=== PATIENT | female | born 1985 | race Caucasian/White ===

== ENCOUNTER 2016-08-27 22:49 | Emergency (ER) | payer OTHER ==
[~2016-08-27] VITALS: Ht 167.6 cm; Wt 104.2 kg
[~2016-08-27 22:49] MED LIST: ACET-1257 PO; LURA1TAB3 PO
[2016-08-27 23:08] VITALS: TEMP 36.6; Ht 167.6 cm; Wt 104.2 kg
--- NOTE | 2016-08-28 00:37 | EMERGENCY ROOM VISIT NOTE ---
History First contact with patient: 23:31 Chief Complaint: OTHER COMPLAINT Stated Complaint: FEVER,NASAL CONGESTION,CHILLS,SHIVERING History of Present Illness The patient is a 31 year old female who presents to the Emergency Room with complaints of a cold and fever. The patient states that she has had cold symptoms for the past one week. She states that she has had nasal congestion, sneezing and intermittent chills. She states that her fever was 100.1F tonight. She took Tylenol which improved this. The patient denies any cough, headache, neck pain, or abdominal pain. The patient also reports that she has been trying to get . She took Clomid one month ago. She states she has had vomiting after taking her medications for the past 3 days, breast pain and back pain and is wondering if she may be . She was seen at [facility] yesterday and had a serum test which she states was pending. The patient denies any vaginal bleeding. Review of Systems A complete 10 point review of systems was reviewed with the patient with pertinent positives and negatives as per history of present illness. All else were negative. Social History Smoking Status: Never Smoker Drug Use: none Marital Status: Housing Status: lives with family Current/Historical Medications Scheduled Acetaminophen (Tylenol Extra Strength), 2 TAB PO HS Lurasidone Hcl (Latuda), 1 TAB PO HS Allergies Coded Allergies: No Known Allergies (Unverified , 05/08/15) Physical Exam Vital Signs Date Time Temp Pulse Resp B/P Pulse Ox O2 Delivery O2 Flow Rate FiO2 08/28/16 00:51 94 18 119/75 98 08/27/16 23:08 36.6 122 19 123/73 98 Room Air Physical Exam VITALS: Vitals are noted on the nurse's note and reviewed by myself. Vital signs stable. GENERAL: This is a 31-year-old female, in no acute distress, nondiaphoretic, well-developed well-nourished. SKIN: The skin was without rashes. EARS: External auditory canals clear, tympanic membranes pearly raymond without erythema or effusion bilaterally. EYES: Pupils equal round and reactive to light and accommodation. Conjunctivae without injection, sclerae without icterus. NOSE: Patent, turbinates without inflammation or discharge. MOUTH: Mucous membranes moist. Tonsils are not enlarged. Pharynx without erythema or exudate. NECK: Supple without nuchal rigidity. No lymphadenopathy. HEART: Regular rate and rhythm without murmurs gallops or rubs. LUNGS: Clear to auscultation bilaterally without wheezes, rales or rhonchi. ABDOMEN: Soft, nontender to palpation. NEURO: Patient was alert and oriented to person place and time. Medical Decision & Procedures Laboratory Results Test 08/28/16 00:02 Urine Test NEG (NEG) Medical Decision Differential diagnosis includes viral illness, influenza, among others. The patient was evaluated as above. She complains of a cold as well as fevers. The patient is afebrile today. Her physical exam is unremarkable. She likely has a viral illness and was instructed to take Tylenol for pain and follow-up with her primary care provider as needed. A urine test was performed here and was negative. She states that a serum test was performed at [facility] and is pending. She was instructed to call them for the results. She verbalized her understanding of my assessment and treatment plan and was discharged home in good condition. Impression Primary Impression: Viral illness Departure Information Dispostion Home / Self-Care Condition GOOD Referrals No Doctor, Assigned (PCP) Patient Instructions My [facility] Additional Instructions Tylenol as needed for pain. Follow-up with your [facility].
[2016-08-28 00:51] VITALS: BP 119/75; PULSE 94; O2SAT 98
== END 2016-08-28 00:52 | disposition home or self-care (01) ==
LOC: C.EDB 22:51 → C.EDC 08-28 00:52
DX: B34.9 Viral infection, unspecified (principal)

== ENCOUNTER 2017-06-19 11:29 | Emergency (ER) | payer OTHER ==
[~2017-06-19] VITALS: Ht 167.6 cm; Wt 102.0 kg
[2017-06-19 11:30] VITALS: TEMP 36.9; Ht 167.6 cm; Wt 102.0 kg
[2017-06-19 11:46] VITALS: O2SAT 93
[2017-06-19] MEDS ORDERED: SODIUM CHLORIDE 0.9% 1000ML 1,000 ML IV STA (12:01)
[2017-06-19] MEDS ORDERED: KETOROLAC TROMETHAMINE 30 MG/ML VIAL IV STA (12:01)
[2017-06-19] MEDS ORDERED: ALBUT/IPRATROP 3MG/0.5MG NEB 3 ML VIAL INH STA ×2 (12:01→14:19)
--- NOTE | 2017-06-19 12:09 | EMERGENCY ROOM VISIT NOTE ---
History Report prepared by Viviane: Bhanu Edwards Under the Supervision of: Dr. Mike Frazier D.O. First contact with patient: 11:54 Chief Complaint: SHORTNESS OF BREATH Stated Complaint: SOB, COUGH Nursing Triage Summary: c/o dry cough and SOB getting worse with a fever History of Present Illness The patient is a 32 year old female who presents to the Emergency Room with complaints of shortness of breath that began two days ago. She denies any known chronic medical history. At this time, that patient began to experience some respiratory problems with intermittent dry coughing. She has a past medical history of bronchitis and pneumonia, so she thought that she should be evaluated. She went to a medical clinic who diagnosed her with a chest cold. However, she continued to exhibit symptoms including a fever of 101.3 F, sore throat, fatigue, and chest heaviness. She most recently took Tylenol 6 hours ago. She takes Gabapentin, Metformin, Latuda, and Trazodone daily. She denies any previous surgeries, excluding a related tear. Her last known menstrual period was May 22, 2017. She denies any known medication allergies. She denies any leg swelling. Source of History: patient Onset: two days ago Position: other (Respiratory System) Symptom Intensity: moderate Quality: other (SOB) Timing: constant Associated Symptoms: + fevers, + sorethroat, + cough, + fatigue Note: She is experiencing chest heaviness. She denies any leg swelling. Review of Systems See HPI for pertinent positives & negatives. A total of 10 systems reviewed and were otherwise negative. Past Medical & Surgical No chronic medical history Family History Diabetes mellitus Hypertension Kidney disease Kidney stones Social History Smoking Status: Never Smoker Smokeless Tobacco Use: No Alcohol Use: none Drug Use: none Marital Status: Housing Status: lives with family Current/Historical Medications Scheduled Acetaminophen (Tylenol Extra Strength), 2 TAB PO HS Albuterol Hfa (Ventolin Hfa), 1 PUFF INH Q4 Azithromycin (Zithromax), 250 MG PO DAILY Gabapentin (Neurontin), 2 TAB PO BID Lurasidone Hcl (Latuda), 1 TAB PO HS Metformin Hcl (Glucophage), 500 MG PO BID Multivit/Min/Iron/Fol Ac/Pren ( Vitamin), 1 TAB PO DAILY Prednisone (Prednisone Tab), 40 MG PO DAILY Trazodone Hcl (Trazodone), 25 MG PO DAILY Allergies Coded Allergies: No Known Allergies (Unverified , 06/19/17) Physical Exam Vital Signs Date Time Temp Pulse Resp B/P (MAP) Pulse Ox O2 Delivery O2 Flow Rate FiO2 06/19/17 14:49 88 18 128/77 97 06/19/17 13:32 90 18 122/72 98 Room Air 06/19/17 12:21 89 16 123/87 100 Room Air 06/19/17 11:54 85 06/19/17 11:46 93 Room Air 06/19/17 11:30 36.9 102 18 122/74 98 Physical Exam GENERAL: Patient is awake, alert, and in no acute distress. Patient is resting comfortably and showing no signs of anxiety EYES: The conjunctivae are clear. The pupils are round and reactive. EARS, NOSE, MOUTH AND THROAT: The nose is without any evidence of any deformity. Mucous membranes are dry tongue is midline NECK: The neck is nontender and supple. RESPIRATORY: Lung sounds are diminished throughout with scattered rhonchi. No tachypnea or conversational dyspnea. CARDIOVASCULAR: Regular rate and rhythm noted there no murmurs rubs or gallops normal S1 normal S2 GASTROINTESTINAL: The abdomen is soft. Bowel sounds are present in all quadrants. Abdomen is nontender MUSCULOSKELETAL/EXTREMITIES: There is no evidence of gross deformity full range of motion is noted in the hips and shoulders SKIN: There is no obvious evidence of any rash. There are no petechiae, pallor or cyanosis noted. NEUROLOGIC: Patient is awake alert and oriented x3 strength is symmetric patellar reflexes are 2+ bilaterally Medical Decision & Procedures ER Provider Diagnostic Interpretation: Radiology results as stated below per my review and radiologist interpretation: CHEST ONE VIEW PORTABLE CLINICAL HISTORY: EVALUATE RESPIRATORY DISTRESS.DYSPNEA COMPARISON STUDY: Chest radiograph May 09, 2015. FINDINGS: Lung volumes are normal. There is no pneumothorax or pleural effusion. There is no consolidation. Pulmonary vascularity is normal. Cardiomediastinal silhouette is normal. IMPRESSION: No acute cardiopulmonary findings. Electronically signed by: Polo Jackson M.D. 06/19/2017 1:56 PM Dictated Date/Time: 06/19/2017 1:56 PM Laboratory Results 06/19/17 12:10 Red Blood Count 4.27, Mean Corpuscular Volume 84.8, Mean Corpuscular Hemoglobin 29.0, Mean Corpuscular Hemoglobin Concent 34.3, Mean Platelet Volume 8.8, Neutrophils (%) (Auto) 57.3, Lymphocytes (%) (Auto) 29.7, Monocytes (%) (Auto) 8.6, Eosinophils (%) (Auto) 3.8, Basophils (%) (Auto) 0.3, Neutrophils # (Auto) 4.25, Lymphocytes # (Auto) 2.20, Monocytes # (Auto) 0.64, Eosinophils # (Auto) 0.28, Basophils # (Auto) 0.02 06/19/17 12:10 Test 06/19/17 12:01 06/19/17 12:10 Influenza Type A Antigen Neg for Influ A (NEG) Influenza Type B Antigen Neg for Influ B (NEG) White Blood Count 7.41 K/uL (4.8-10.8) Red Blood Count 4.27 M/uL (4.2-5.4) Hemoglobin 12.4 g/dL (12.0-16.0) Hematocrit 36.2 % (37-47) Mean Corpuscular Volume 84.8 fL (80-100) Mean Corpuscular Hemoglobin 29.0 pg (25-34) Mean Corpuscular Hemoglobin Concent 34.3 g/dl (32-36) Platelet Count 237 K/uL (130-400) Mean Platelet Volume 8.8 fL (7.4-10.4) Neutrophils (%) (Auto) 57.3 % Lymphocytes (%) (Auto) 29.7 % Monocytes (%) (Auto) 8.6 % Eosinophils (%) (Auto) 3.8 % Basophils (%) (Auto) 0.3 % Neutrophils # (Auto) 4.25 K/uL (1.4-6.5) Lymphocytes # (Auto) 2.20 K/uL (1.2-3.4) Monocytes # (Auto) 0.64 K/uL (0.11-0.59) Eosinophils # (Auto) 0.28 K/uL (0-0.5) Basophils # (Auto) 0.02 K/uL (0-0.2) RDW Standard Deviation 41.0 fL (36.4-46.3) RDW Coefficient of Variation 13.4 % (11.5-14.5) Immature Granulocyte % (Auto) 0.3 % Immature Granulocyte # (Auto) 0.02 K/uL (0.00-0.02) Anion Gap 9.0 mmol/L (3-11) Est Creatinine Clear Calc Drug Dose 130.5 ml/min Estimated GFR () 122.0 Estimated GFR (Non- 105.3 BUN/Creatinine Ratio 17.9 (10-20) Calcium Level 9.2 mg/dl (8.5-10.1) Total Bilirubin 0.2 mg/dl (0.2-1) Aspartate Amino Transf (AST/SGOT) 16 U/L (15-37) Alanine Aminotransferase (ALT/SGPT) 32 U/L (12-78) Alkaline Phosphatase 66 U/L (45-117) Troponin I < 0.015 ng/ml (0-0.045) Total Protein 7.7 gm/dl (6.4-8.2) Albumin 3.7 gm/dl (3.4-5.0) Globulin 4.0 gm/dl (2.5-4.0) Albumin/Globulin Ratio 0.9 (0.9-2) Human Chorionic Gonadotropin, Qual NEG (NEG) Laboratory results per my review. Medications Administered Medications (Trade) Dose Ordered Sig/Ramona Route Start Time Stop Time Status Last Admin Dose Admin Sodium Chloride 1,000 ml @ 999 mls/hr Q1H1M STAT IV 06/19/17 12:01 06/19/17 13:01 DC 06/19/17 12:17 999 MLS/HR Ketorolac Tromethamine (Toradol Inj) 30 mg NOW STAT IV 06/19/17 12:01 06/19/17 12:03 DC 06/19/17 12:16 30 MG Albuterol/ Ipratropium (Duoneb) 3 ml NOW STAT INH 06/19/17 12:01 06/19/17 12:03 DC 06/19/17 12:16 3 ML Prednisone (PredniSONE TAB) 60 mg NOW STAT PO 06/19/17 14:17 06/19/17 14:18 DC 06/19/17 14:23 60 MG Azithromycin (Zithromax Tab) 500 mg NOW STAT PO 06/19/17 14:17 06/19/17 14:18 DC 06/19/17 14:23 500 MG Albuterol/ Ipratropium (Duoneb) 3 ml NOW STAT INH 06/19/17 14:19 06/19/17 14:20 DC 06/19/17 14:23 3 ML ECG Per My Interpretation Indication: SOB/dyspnea Rate (beats per minute): 85 Rhythm: normal sinus Findings: other (No PVC, no acute ST segments) Comparison ECG Date: 05/08/15 Change: no significant change ED Course 1154: The patient was evaluated in room B2. A complete history and physical examination were performed. 1201: Ordered DuoNeb 3 ml INH, Toradol Inj 30 mg IV, NSS 1,000 ml @ 999 mls/hr IV 1417: Ordered Zithromax Tab 500 mg PO, Prednisone 60 mg PO 1419: Ordered DuoNeb 3 ml INH 1445: Upon reevaluation, the patient is resting. I discussed the results and treatment plan with her. She verbalized agreement of the treatment plan. She was discharged home. Medical Decision Differential diagnosis: Etiologies such as infections, reactive airway disease, pneumonia, pneumothorax , COPD, CHF, cardiac ischemia, pulmonary embolism, musculoskeletal, gastrointestinal, as well as others were entertained. Nursing notes reviewed. The patient is a 32-year-old female who presented to the emergency department for an evaluation of cough. The patient is a history of bronchitis in the past. She was concerned she may have pneumonia. The patient was treated with IV fluids as well as bronchodilator therapy. She was also started on steroids as well as antibiotics. I discussed the patient's laboratory and radiographic studies with her. She was encouraged to rest and avoid any strenuous activity. She was also encouraged to continue all medications as prescribed and follow- up with her family doctor since possible. Otherwise I recommended that she return to the emergency department immediately if symptoms change worsening of the need arises. Medication Reconcilliation Current Medication List: was personally reviewed by me Blood Pressure Screening Patient's blood pressure: Normal blood pressure Blood pressure disposition: Did not require urgent referral Impression Primary Impression: Bronchitis Scribe Attestation The scribe's documentation has been prepared under my direction and personally reviewed by me in its entirety. I confirm that the note above accurately reflects all work, treatment, procedures, and medical decision making performed by me. Departure Information Dispostion Home / Self-Care Prescriptions Prednisone (Prednisone Tab) 20 Mg Tab 40 MG PO DAILY, #10 TAB Prov: Mike Frazier, DO 2/24/18 Albuterol Hfa (VENTOLIN HFA) 200 Puffs/67952 Mcg Aers 1 PUFF INH Q4, #1 INHALER Prov: Mike Frazier, DO 06/19/17 Azithromycin (Zithromax) 250 Mg Tab 250 MG PO DAILY, #4 TAB Prov: Mike Frazier, DO 06/19/17 Referrals Anshul Gunter PA-C Forms HOME CARE DOCUMENTATION FORM, IMPORTANT VISIT INFORMATION, Work Instructions Patient Instructions Bronchitis Acute, My [facility] Additional Instructions Continue all medications as prescribed. Call your family doctor to schedule a follow-up appointment. Start taking the steroid as well as the Zithromax tomorrow because you were given the first dose in the emergency department today.
[2017-06-19 12:23] LABS: BASO % 0.3 %; BASO ABS # 0.02 K/uL (0-0.2); EOS % 3.8 %; EOS ABS # 0.28 K/uL (0-0.5); HEMATOCRIT 36.2 % (37-47); HEMOGLOBIN 12.4 g/dL (12.0-16.0); IG# 0.02 K/uL (0.00-0.02); LYMPH % 29.7 %; MEAN CELL VOLUME 84.8 fL (80-100); MEAN CORPUSCULAR HGB CONC 34.3 g/dl (32-36); MEAN PLATELET VOLUME 8.8 fL (7.4-10.4); MONO % 8.6 %; MONO ABS # 0.64 K/uL (0.11-0.59); NEUT % 57.3 %; NEUT ABS # 4.25 K/uL (1.4-6.5); PLATELET COUNT 237 K/uL (130-400); RED CELL DISTRIBUTION WIDTH CV 13.4 % (11.5-14.5); WHITE BLOOD COUNT 7.41 K/uL (4.8-10.8)
[2017-06-19 12:41] LABS: ALBUMIN 3.7 gm/dl (3.4-5.0); ALT/SGPT 32 U/L (12-78); BLOOD UREA NITROGEN 14 mg/dl (7-18); CALCIUM 9.2 mg/dl (8.5-10.1); CARBON DIOXIDE 23 mmol/L (21-32); CREATININE 0.76 mg/dl (0.60-1.20); GLUCOSE 84 mg/dl (70-99); POTASSIUM 3.9 mmol/L (3.5-5.1); SODIUM 138 mmol/L (136-145)
[2017-06-19 12:46] LABS: ALKALINE PHOSPHATASE 66 U/L (45-117); AST/SGOT 16 U/L (15-37); TOTAL PROTEIN 7.7 gm/dl (6.4-8.2)
[2017-06-19 12:50] LABS: INFLUENZA B ANTIGEN Neg for Influ B (NEG)
[2017-06-19] MEDS ORDERED: PRENTAB26 PO (13:32)
[2017-06-19] MEDS ORDERED: GABA800T2 PO (13:32)
[2017-06-19] MEDS ORDERED: GLC/500 PO (13:32)
[2017-06-19] MEDS ORDERED: TRAZ50TA35 PO (13:32)
--- NOTE | 2017-06-19 13:58 | DIAGNOSTIC IMAGING REPORT ---
CHEST ONE VIEW PORTABLE CLINICAL HISTORY: EVALUATE RESPIRATORY DISTRESS.DYSPNEA COMPARISON STUDY: Chest radiograph May 09, 2015. FINDINGS: Lung volumes are normal. There is no pneumothorax or pleural effusion. There is no consolidation. Pulmonary vascularity is normal. Cardiomediastinal silhouette is normal. IMPRESSION: No acute cardiopulmonary findings. Electronically signed by: Polo Jackson M.D. 06/19/2017 1:56 PM Dictated Date/Time: 06/19/2017 1:56 PM
[2017-06-19] MEDS ORDERED: AZITHROMYCIN 250 MG TAB PO STA (14:17)
[2017-06-19] MEDS ORDERED: AZIT250T PO (14:22)
[2017-06-19] MEDS ORDERED: PRED20TA2 PO (14:22)
[2017-06-19] MEDS ORDERED: VNTHFA/IN INH (14:22)
[2017-06-19 14:49] VITALS: BP 128/77; PULSE 88; O2SAT 97
== END 2017-06-19 14:50 | disposition home or self-care (01) ==
LOC: C.EDB 11:29
DX: J40 Bronchitis, not specified as acute or chronic (principal); Z83.3 Family history of diabetes mellitus; Z82.49 Family history of ischemic heart disease and other diseases of the circulatory system; Z84.1 Family history of disorders of kidney and ureter